=== PATIENT | female | born 1965 | race Caucasian/White ===

== ENCOUNTER 2018-08-01 16:06 | Outpatient (REF) | payer MEDICAID, SELFPAY ==
[2018-08-01 19:00] LABS: HCT 37.6 % (36.0-46.0); HGB 12.2 g/dL (12.0-15.5); Mean Corp. HGB Concentration 32.4 g/dL (32.0-36.0); Mean Corpuscular Hemoglobin 25.9 pg (27.0-33.0); Mean Corpuscular Volume 79.8 fL (80-95); Mean Platelet Volume 10.2 fL (8.0-11.0); Platelet Count 307 x1000/uL (130-400); RBC 4.71 m/cumm (4.00-5.20); RBC Distribution Width 13.5 % (11.7-14.6); White Blood Cell Count 8.01 k/cumm (4.4-10.8)
[2018-08-01 19:11] LABS: Iron 49 ug/dL (50-175)
== END 2018-08-01 16:26 ==
LOC: NCHCN 16:06
PROVIDERS: PCP Nurse Practitioner Family; Visit Provider Nurse Practitioner Family
DX: K62.5 Hemorrhage of anus and rectum (principal); I10 Essential (primary) hypertension
CPT/HCPCS: 85027; 83540

== ENCOUNTER 2018-08-29 13:46 | Outpatient (REF) | payer MEDICAID, SELFPAY ==
--- NOTE | 2018-08-29 13:20 | PAPFT_PTH ---
PATIENT: Danay Huddleston LOC: [facility] U#:[id number] AGE/SX: 53/F ROOM: RE08/29/[address]: Charisse Villasenor : 1965 BED: DIS: 08/29/2018 SPEC #: [id number] RECD: 08/29/18 18:09 STATUS: BUD REAyse #: [id number] TONY: 08/29/18 13:[address]: Charisse Villasenor DEPT: [facility] Cytology RECD BY: Gina Anthony Tissues: 1 - CX/ENDOCX FOR PAP SMEARS Procedures: PAP THIN PREP/[facility] Screening HPV DNA PROBE Comments: [id number]
== END 2018-08-29 14:06 ==
LOC: NCHCN 13:46
PROVIDERS: PCP Nurse Practitioner Family; Visit Provider Nurse Practitioner Family
DX: Z12.4 Encounter for screening for malignant neoplasm of cervix (principal); Z11.51 Encounter for screening for human papillomavirus (HPV); Z01.419 Encounter for gynecological examination (general) (routine) without abnormal findings
CPT/HCPCS: 88142; 87624

== ENCOUNTER 2018-10-20 12:48 | Outpatient (REF) | payer MEDICAID, SELFPAY ==
[2018-10-20 19:09] LABS: ALT 77 U/L (12-78); AST 35 U/L (15-37); BUN 20 mg/dL (7-18); CREATININE 0.77 mg/dL (0.55-1.02); Calcium 9.5 mg/dL (8.5-10.1); Chloride 99 mmol/L (98-107); Cholesterol 245 mg/dL (50-200); Glucose 318 mg/dL (70-100); HDL Cholesterol 38 mg/dL (40-60); Potassium 4.8 mmol/L (3.5-5.1); Sodium 136 mmol/L (136-145); Triglyceride 452 mg/dL (30-150)
[2018-10-20 19:25] LABS: LDL CHOLESTEROL 127 mg/dL (<100)
== END 2018-10-20 13:08 ==
LOC: NCHCN 12:48
PROVIDERS: PCP Nurse Practitioner Family; Visit Provider Nurse Practitioner Family
DX: E11.40 Type 2 diabetes mellitus with diabetic neuropathy, unspecified (principal); I10 Essential (primary) hypertension
CPT/HCPCS: 80048; 80061; 83721; 82043; 82570; 84450; 84460

== ENCOUNTER 2019-03-12 16:26 | Outpatient (REF) | payer MEDICAID, SELFPAY ==
[2019-03-12 19:09] LABS: COMMENT (LAB VIEW ONLY) 84.73 mg/dL; Microalb ug/mg Crea 33.6 ug/mg Cr
== END 2019-03-12 16:46 ==
LOC: NCHCN 16:26
PROVIDERS: PCP Nurse Practitioner Family; Visit Provider Nurse Practitioner Family
DX: E11.40 Type 2 diabetes mellitus with diabetic neuropathy, unspecified (principal)
CPT/HCPCS: 82043; 82570

== ENCOUNTER 2020-01-17 11:57 | Outpatient (REF) | payer MEDICAID, SELFPAY ==
[2020-01-21 07:24] LABS: SARS-CoV-2 RNA Undetected (Undetected); SARS-CoV-2 Specimen Source Nasopharynx
== END 2020-01-17 12:17 ==
LOC: NCHCN 11:57
PROVIDERS: PCP Nurse Practitioner Family; Visit Provider Nurse Practitioner Family
DX: J02.9 Acute pharyngitis, unspecified (principal)
CPT/HCPCS: U0003

== ENCOUNTER 2020-08-12 14:05 | Outpatient (REF) | payer MEDICAID, SELFPAY ==
[2020-08-12 19:20] LABS: ALT 58 U/L (14-59); AST 20 U/L (15-37); Albumin 3.8 g/dL (3.4-5.0); Alkaline Phosphatase 144 U/L (46-116); Anion Gap 10.5 mmol/L (3-11); BUN 12 mg/dL (7-18); Bilirubin, Total 0.1 mg/dL (0.2-1.0); CO2 25.5 mmol/L (21.0-32.0); CREATININE 0.6 mg/dL (0.55-1.02); Calculated LDL 145 mg/dL (<100); Chloride 106 mmol/L (98-107); Cholesterol 241 mg/dL (<200); Glucose 103 mg/dL (74-106); HDL Cholesterol 41 mg/dL (40-60); Potassium 4.3 mmol/L (3.5-5.1); Sodium 142 mmol/L (136-145); Total Protein 7.1 g/dL (6.4-8.2); Triglyceride 279 mg/dL (<150)
[2020-08-12 19:28] LABS: Hemoglobin A1C 8.8 % (<5.7)
== END 2020-08-12 14:06 | disposition home or self-care (01) ==
LOC: NCHCN 14:05
PROVIDERS: PCP Nurse Practitioner Family; Visit Provider Nurse Practitioner Family
DX: E11.40 Type 2 diabetes mellitus with diabetic neuropathy, unspecified (principal); I10 Essential (primary) hypertension; E78.5 Hyperlipidemia, unspecified
CPT/HCPCS: 80053; 80061; 83036

== ENCOUNTER 2020-09-02 17:09 | Outpatient (REF) | payer MEDICAID, SELFPAY ==
[2020-09-04 15:28] LABS: COVID-19 RT-PCR UVMMC Result Negative (Negative)
== END 2020-09-02 17:10 | disposition home or self-care (01) ==
LOC: NCHCN 17:09
PROVIDERS: PCP Nurse Practitioner Family; Visit Provider Nurse Practitioner Family
DX: Z20.822 Contact with and (suspected) exposure to COVID-19 (principal); J06.9 Acute upper respiratory infection, unspecified
CPT/HCPCS: U0003

== ENCOUNTER 2021-01-29 16:43 | Outpatient (REF) | payer MEDICAID, SELFPAY ==
[2021-01-31 10:59] LABS: COVID-19 RT-PCR UVMMC Result Negative (Negative)
== END 2021-01-29 16:44 | disposition home or self-care (01) ==
LOC: NCHCN 16:43
PROVIDERS: PCP Nurse Practitioner Family; Visit Provider Nurse Practitioner Family
DX: Z20.822 Contact with and (suspected) exposure to COVID-19 (principal); R05.8 Other specified cough
CPT/HCPCS: U0003

== ENCOUNTER 2021-02-12 14:54 | Outpatient (REF) | payer MEDICAID, SELFPAY ==
[2021-02-12 19:52] LABS: ALT 55 U/L (14-59); AST 18 U/L (15-37); Albumin 4.2 g/dL (3.4-5.0); Alkaline Phosphatase 176 U/L (46-116); Anion Gap 11.5 mmol/L (3-11); BUN 17 mg/dL (7-18); Bilirubin, Total 0.4 mg/dL (0.2-1.0); CO2 27.5 mmol/L (21.0-32.0); CREATININE 0.7 mg/dL (0.55-1.02); Calcium 9.5 mg/dL (8.5-10.1); Chloride 98 mmol/L (98-107); Cholesterol 311 mg/dL (<200); Glucose 263 mg/dL (74-106); HDL Cholesterol 39 mg/dL (40-60); Potassium 4.2 mmol/L (3.5-5.1); Sodium 137 mmol/L (136-145); Total Protein 7.6 g/dL (6.4-8.2); Triglyceride 433 mg/dL (<150)
[2021-02-12 20:37] LABS: LDL CHOLESTEROL 179 mg/dL (<100)
== END 2021-02-12 14:55 | disposition home or self-care (01) ==
LOC: NCHCN 14:54
PROVIDERS: PCP Nurse Practitioner Family; Visit Provider Nurse Practitioner Family
DX: E11.40 Type 2 diabetes mellitus with diabetic neuropathy, unspecified (principal); I10 Essential (primary) hypertension; E78.5 Hyperlipidemia, unspecified
CPT/HCPCS: 80053; 80061; 83721

== ENCOUNTER 2021-04-15 10:42 | Outpatient (REF) | payer MEDICAID, SELFPAY ==
[2021-04-17 16:31] LABS: COVID-19 RT-PCR UVMMC Result Negative (Negative)
== END 2021-04-15 10:43 | disposition home or self-care (01) ==
LOC: NCHCN 10:42
PROVIDERS: PCP Nurse Practitioner Family; Visit Provider Nurse Practitioner Family
DX: Z20.822 Contact with and (suspected) exposure to COVID-19 (principal)
CPT/HCPCS: U0003

== ENCOUNTER 2021-09-24 17:46 | Outpatient (REF) | payer MEDICAID, SELFPAY ==
[2021-09-24 19:50] LABS: Hemoglobin A1C 10.8 % (<5.7)
[2021-09-28 10:53] LABS: Hepatitis C Ab w Rflx HCV PCR Negative (Negative)
== END 2021-09-24 17:47 | disposition home or self-care (01) ==
LOC: NCHCN 17:46
PROVIDERS: PCP Nurse Practitioner Family; Visit Provider Nurse Practitioner Family
DX: E11.40 Type 2 diabetes mellitus with diabetic neuropathy, unspecified (principal); R79.89 Other specified abnormal findings of blood chemistry
CPT/HCPCS: 86803; 83036

== ENCOUNTER 2022-04-15 16:06 | Outpatient (REF) | payer MEDICAID, SELFPAY ==
[2022-04-15 19:11] LABS: ALT 42 U/L (14-59); AST 27 U/L (15-37); Alkaline Phosphatase 138 U/L (46-116); Anion Gap 7.6 mmol/L (3-11); BUN 15 mg/dL (7-18); Bilirubin, Total 0.3 mg/dL (0.2-1.0); CO2 26.4 mmol/L (21.0-32.0); CREATININE 0.8 mg/dL (0.55-1.02); Calcium 9.4 mg/dL (8.5-10.1); Calculated LDL 176 mg/dL (<100); Chloride 100 mmol/L (98-107); Cholesterol 278 mg/dL (<200); Estimated GFR 86.42 (mL/min/1.73m2); Glucose 270 mg/dL (74-106); HDL Cholesterol 46 mg/dL (40-60); Potassium 4.2 mmol/L (3.5-5.1); Sodium 134 mmol/L (136-145); Total Protein 7.8 g/dL (6.4-8.2); Triglyceride 283 mg/dL (<150)
== END 2022-04-15 16:07 | disposition home or self-care (01) ==
LOC: NCHCN 16:06
PROVIDERS: PCP Nurse Practitioner Family; Visit Provider Nurse Practitioner Family
DX: E11.40 Type 2 diabetes mellitus with diabetic neuropathy, unspecified (principal); I10 Essential (primary) hypertension; E78.5 Hyperlipidemia, unspecified
CPT/HCPCS: 80053; 80061